=== PATIENT | female | born 1980 | race Hispanic/Latino ===

== ENCOUNTER 2018-03-08 21:01 | Emergency (ER) | payer SELFPAY ==
[2018-03-08 21:25] LABS: APPEARANCE,URINE CLOUDY (CLEAR); BILIRUBIN,URINE NEGATIVE (NEGATIVE); COLOR,URINE RED (YELLOW); GLUCOSE, URINE (UA) NEGATIVE (NEGATIVE); KETONES,URINE NEGATIVE (NEGATIVE); LEUKOCYTE ESTERASE ,URINE SMALL (NEGATIVE); NITRATE,URINE POSITIVE (NEGATIVE); OCCULT BLOOD,URINE LARGE (NEGATIVE); PH,URINE 5.5 (5.0-8.0); PROTEIN,URINE >=300 (NEGATIVE)
[2018-03-08 21:30] LABS: HCG,QUAL RESULT NEGATIVE (NEGATIVE)
[2018-03-08] MEDS ORDERED: ACETAMINOPHEN EXTRA STRENGTH 500 MG TABLET ONE (21:37)
[2018-03-08] MEDS ORDERED: KETOROLAC TROMETHAMINE 30MG/ML ONE (21:37)
[2018-03-08 21:38] LABS: CREATININE 0.8 mg/dL (0.5-1.5); POTASSIUM 3.7 mmol/L (3.5-5.1)
[2018-03-08 21:43] LABS: ALBUMIN 3.9 g/dL (3.5-5.0); BILIRUBIN,TOTAL 0.2 mg/dL (0.2-1.0); TOTAL PROTEIN, SERUM 8.2 g/dL (6.0-8.3)
[2018-03-08 21:49] LABS: BACTERIA,URINE Rare /HPF (None Seen); RBC,URINE TNTC /HPF (0-1)
[2018-03-08 21:50] LABS: SQUAMOUS EPITHELIAL CELL,UR None Seen /HPF (0-2)
[2018-03-08 21:53] LABS: BASOPHILS % (AUTO) 1.1 % (0.0-5.0); EOSINOPHILS % (AUTO) 6.3 % (0.0-8.0); LYMPHOCYTES % (AUTO) 22.8 % (21.0-51.0); MEAN CORPUSCULAR HEMOGLOBIN 25.8 pg (27.0-33.0); MEAN CORPUSCULAR HGB CONC 33.1 g/dL (32.0-36.0); MEAN CORPUSCULAR VOLUME 77.8 fL (79-99); MONOCYTES % (AUTO) 3.6 % (3.0-13.0); NEUTROPHILS % (AUTO) 66.2 % (40.0-77.0); PLATELET COUNT (AUTO) 424 K/uL (130-400); RED BLOOD CELL COUNT(AUTO) 4.88 MIL/uL (4.00-5.50); RED CELL DISTRIBUTION WIDTH 15.3 % (11.0-15.5); WHITE BLOOD COUNT (AUTO) 11.2 K/uL (4.8-10.8)
[2018-03-09] MEDS ORDERED: AZITHROMYCIN 250 MG TABLET PO ONE (01:39)
[2018-03-09] MEDS ORDERED: CEFTRIAXONE SODIUM 500 MG VIAL ONE (01:39)
[2018-03-09] MEDS ORDERED: LIDOCAINE HCL-MPF 1% 2ML VIAL ONE (01:40)
== END 2018-03-09 01:55 | disposition home or self-care (01) ==
LOC: EDH 21:01
DX: N73.9 Female pelvic inflammatory disease, unspecified (principal); D25.9 Leiomyoma of uterus, unspecified; I10 Essential (primary) hypertension; Z88.8 Allergy status to other drugs, medicaments and biological substances; Z72.0 Tobacco use
CPT/HCPCS: 36415; 76856; 80053; 81001; 81025; 85025; 96372 ×2; 99285; J0696; J1885; J3490

== ENCOUNTER 2019-04-15 13:40 | Emergency (ER) | payer SELFPAY ==
[2019-04-15 14:13] LABS: EOSINOPHILS % (AUTO) 1.8 % (0.0-8.0); LYMPHOCYTES % (AUTO) 26.5 % (21.0-51.0); MEAN CORPUSCULAR HGB CONC 33.9 g/dL (32.0-36.0); MEAN CORPUSCULAR VOLUME 79.8 fL (79-99); MONOCYTES % (AUTO) 5.6 % (3.0-13.0); NEUTROPHILS % (AUTO) 65.1 % (40.0-77.0); PLATELET COUNT (AUTO) 314 K/uL (130-400); RED BLOOD CELL COUNT(AUTO) 4.01 MIL/uL (4.00-5.50); RED CELL DISTRIBUTION WIDTH 14.6 % (11.0-15.5); WHITE BLOOD COUNT (AUTO) 6.4 K/uL (4.8-10.8)
[2019-04-15 14:21] LABS: BILIRUBIN,URINE NEGATIVE (NEGATIVE); COLOR,URINE RED (YELLOW); GLUCOSE, URINE (UA) 100 mg/dL (NEGATIVE); KETONES,URINE 5 mg/dL (NEGATIVE); LEUKOCYTE ESTERASE ,URINE MODERATE (NEGATIVE); NITRATE,URINE POSITIVE (NEGATIVE); OCCULT BLOOD,URINE LARGE (NEGATIVE); PROTEIN,URINE >=300 mg/dL (NEGATIVE)
[2019-04-15 14:23] LABS: APPEARANCE,URINE BLOODY (CLEAR)
[2019-04-15 14:38] LABS: RBC,URINE Full Field /HPF (0-1)
[2019-04-15 14:40] LABS: BACTERIA,URINE Few /HPF (None Seen); TRICHOMONAS,URINE Moderate /LPF (None Seen)
[2019-04-15] MEDS ORDERED: KETOROLAC TROMETHAMINE 60 MG/2 ML VIAL ONE (14:50)
== END 2019-04-15 16:08 | disposition home or self-care (01) ==
LOC: EDH 13:40
DX: N92.1 Excessive and frequent menstruation with irregular cycle (principal); N39.0 Urinary tract infection, site not specified; A59.9 Trichomoniasis, unspecified; I10 Essential (primary) hypertension; F41.9 Anxiety disorder, unspecified; Z98.890 Other specified postprocedural states; Z72.0 Tobacco use; Z88.8 Allergy status to other drugs, medicaments and biological substances
CPT/HCPCS: 36415; 81001; 84702; 85025; 86900; 86901; 96372; 99284; J1885

== ENCOUNTER 2019-11-23 19:53 | Emergency (ER) | payer SELFPAY ==
[2019-11-23] MEDS ORDERED: ONDANSETRON HCL 4 MG/2 ML VIAL ONE (20:23)
[2019-11-23] MEDS ORDERED: MORPHINE SULFATE 4 MG/1ML SYG ONE (20:23)
[2019-11-23 20:27] LABS: BASOPHILS % (AUTO) 0.5 % (0.0-5.0); EOSINOPHILS % (AUTO) 2.4 % (0.0-8.0); HEMATOCRIT 38.5 % (36-48); LYMPHOCYTES % (AUTO) 23.4 % (21.0-51.0); MEAN CORPUSCULAR HEMOGLOBIN 27.3 pg (27.0-33.0); MEAN CORPUSCULAR HGB CONC 33.5 g/dL (32.0-36.0); MEAN CORPUSCULAR VOLUME 81.6 fL (79-99); MONOCYTES % (AUTO) 4.1 % (3.0-13.0); NEUTROPHILS % (AUTO) 69.3 % (40.0-77.0); PLATELET COUNT (AUTO) 353 K/uL (130-400); RED BLOOD CELL COUNT(AUTO) 4.72 MIL/uL (4.00-5.50); RED CELL DISTRIBUTION WIDTH 13.5 % (11.0-15.5); WHITE BLOOD COUNT (AUTO) 12.2 K/uL (4.8-10.8)
[2019-11-23 20:32] LABS: APPEARANCE,URINE Clear (CLEAR); BILIRUBIN,URINE Negative (NEGATIVE); COLOR,URINE Yellow (YELLOW); GLUCOSE, URINE (UA) Negative (NEGATIVE); KETONES,URINE Negative (NEGATIVE); LEUKOCYTE ESTERASE ,URINE Negative (NEGATIVE); NITRATE,URINE Negative (NEGATIVE); OCCULT BLOOD,URINE Negative (NEGATIVE); PROTEIN,URINE Negative (NEGATIVE); UROBILINOGEN,URINE 0.2 mg/dL (0.2-1.0)
[2019-11-23 20:38] LABS: INR 0.96 (0.85-1.15); PARTIAL THROMBOPLASTIN TIME 25.7 SEC (26.3-35.5); PROTHROMBIN TIME 10.1 SEC (9.6-11.6)
[2019-11-23 20:40] LABS: AMPHET/METH SCREEN,URINE NEGATIVE (NEGATIVE); BARBITURATE SCREEN, URINE NEGATIVE (NEGATIVE); BENZODIAZEPINES SCREEN,URINE NEGATIVE (NEGATIVE); CANNABINOID SCREEN,URINE NEGATIVE (NEGATIVE); COCAINE SCREEN,URINE NEGATIVE (NEGATIVE); OPIATE SCREEN,URINE NEGATIVE (NEGATIVE); PHENCYCLIDINE SCREEN,URINE NEGATIVE (NEGATIVE)
[2019-11-23 20:42] LABS: CREATININE 0.8 mg/dL (0.5-1.5); POTASSIUM 3.5 mmol/L (3.5-5.1)
[2019-11-23 20:46] LABS: ALBUMIN 3.9 g/dL (3.5-5.0); BILIRUBIN,TOTAL 0.2 mg/dL (0.2-1.0)
== END 2019-11-23 22:40 | disposition home or self-care (01) ==
LOC: EDH 19:53
DX: R10.9 Unspecified abdominal pain (principal); F41.9 Anxiety disorder, unspecified; I10 Essential (primary) hypertension; D25.9 Leiomyoma of uterus, unspecified; Z98.890 Other specified postprocedural states; Z72.0 Tobacco use; Z88.8 Allergy status to other drugs, medicaments and biological substances
CPT/HCPCS: 36415; 74176; 76705; 80053; 80305; 81003; 81025; 83690; 84484; 85025; 85610; 85730; 93005; 96374; 96375; 99285; J2270; J2405

== ENCOUNTER 2021-10-13 18:34 | Emergency (ER) | payer SELFPAY ==
[~2021-10-13] VITALS: Ht 157.5 cm; Wt 74.8 kg
[2021-10-13 18:37] VITALS: BP 132/94
[2021-10-13] MEDS ORDERED: CYCL5TAB PO (21:06)
[2021-10-13] MEDS ORDERED: IBUP-2070 PO (21:06)
[2021-10-13] MEDS ORDERED: HYDROCODONE/ACETAMINOPHEN 5/325 MG TAB ONE (21:28)
[2021-10-13] MEDS ORDERED: HYDROCODONE/ACETAMINOPHEN 5/325 MG TAB PO ONE (21:30)
== END 2021-10-13 21:36 | disposition home or self-care (01) ==
LOC: EDH 18:34
DX: S16.1XXA Strain of muscle, fascia and tendon at neck level, initial encounter (principal); R51.9 Headache, unspecified; V49.59XA Passenger injured in collision with other motor vehicles in traffic accident, initial encounter; Y93.89 Activity, other specified; Y92.89 Other specified places as the place of occurrence of the external cause; Y99.8 Other external cause status
CPT/HCPCS: 70450; 72125